=== PATIENT | female | born 1945 | race Caucasian/White ===

== ENCOUNTER → 2019-05-24 | Outpatient (CLI) | payer MEDICARE, BC ==
[~2019-05-24] MED LIST: ASPI-496 PO; CALC-534 PO; CRAN400T4 PO; DOCU-131 PO; FEXO180T72 PO; LEVO112T2 PO; MULT-717 PO; SERT50TA28 PO
== END | disposition home or self-care (01) ==
LOC: STAR 10:46 → EDBD 11:30
PROVIDERS: ATTEND Obstetrics & Gynecology Female Pelvic Medicine and Reconstructive Surgery
DX: Z01.818 Encounter for other preprocedural examination (principal); N81.2 Incomplete uterovaginal prolapse; N39.3 Stress incontinence (female) (male)
CPT/HCPCS: 93005

== ENCOUNTER 2020-02-23 10:28 | Outpatient (CLI) | payer MEDICARE, BC ==
[2020-02-23] MEDS ORDERED: CHOL10003 PO (11:18)
[2020-02-23] MEDS ORDERED: HAIR SKIN NAILS PO (11:18)
[2020-02-23] MEDS ORDERED: METAMUCIL PO (11:18)
== END 2020-02-23 23:59 | disposition home or self-care (01) ==
LOC: STAR 10:28
PROVIDERS: ATTEND Obstetrics & Gynecology Female Pelvic Medicine and Reconstructive Surgery
DX: Z01.818 Encounter for other preprocedural examination (principal); Z11.59 Encounter for screening for other viral diseases; N39.3 Stress incontinence (female) (male); N81.10 Cystocele, unspecified; R10.2 Pelvic and perineal pain; N81.6 Rectocele
CPT/HCPCS: 36415; 87635; 93005

== ENCOUNTER 2020-02-27 07:20 | Day surgery (SDC) | payer MEDICARE, BC ==
[~2020-02-27] VITALS: Ht 167.6 cm; Wt 71.7 kg
[~2020-02-27 07:20] MED LIST changes: +CHOL10003 PO; +HAIR SKIN NAILS PO; +METAMUCIL PO
[2020-02-27] MEDS ORDERED: LACTATED RINGERS 1,000 ML IV SCH (07:45)
[2020-02-27 07:51] VITALS: BP 126/78
[2020-02-27] MEDS ORDERED: CHLORHEXIDINE 15 ML UDC MM ONE (08:00)
[2020-02-27] MEDS ORDERED: DIPHENHYDRAMINE 50 MG/ML, 1ML IVPush PRN (08:30)
[2020-02-27] MEDS ORDERED: METOCLOPRAMIDE 5 MG/ML, 2ML IVPush PRN (08:30)
[2020-02-27] MEDS ORDERED: ONDANSETRON 2MG/ML, 2ML IVPush PRN (08:30)
[2020-02-27] MEDS ORDERED: LABETALOL 5MG/ML, 20ML IV PRN (08:30)
[2020-02-27] MEDS ORDERED: LORazepam 2 MG/ML, 1ML IVPush PRN (08:30)
[2020-02-27] MEDS ORDERED: MEPERIDINE/PF 25MG/0.5ML IVPush PRN (08:30)
[2020-02-27] MEDS ORDERED: EPHEDRINE 50 MG/ML, 1ML IVPush PRN (08:30)
[2020-02-27] MEDS ORDERED: ALBUTEROL/IPRATROPIUM 2.5MG/0.5MG, 3 ML NPPB PRN (08:30)
[2020-02-27] MEDS ORDERED: METHOCARBAMOL 1,000 MG in DEXTROSE 5% 100 ML IV PRN (08:30)
[2020-02-27] MEDS ORDERED: HYDROcodone/APAP 7.5-325MG/15ML UDC PO PRN (08:30)
[2020-02-27] MEDS ORDERED: HALOPERIDOL 5 MG/ML IV PRN (08:30)
[2020-02-27] MEDS ORDERED: ACETAMINOPHEN 325 MG TABLET PO PRN (08:30)
[2020-02-27] MEDS ORDERED: DIAZEPAM 5 MG/ML, 2ML IVPush PRN (08:30)
[2020-02-27] MEDS ORDERED: EPHEDRINE 50 MG/ML, 1ML IM PRN (08:30)
[2020-02-27] MEDS ORDERED: MIDAZOLAM 1 MG/ML, 2ML IV PRN (08:30)
[2020-02-27] MEDS ORDERED: BUPIVACAINE/PF 0.25% ONE (09:09)
[2020-02-27] MEDS ORDERED: FLUORESCEIN SODIUM 500 MG/5 ML ONE (09:09)
[2020-02-27] MEDS ORDERED: GENTAMICIN 80 MG/2 ML ONE (09:09)
[2020-02-27] MEDS ORDERED: VANCOMYCIN 500 MG ONE (09:09)
[2020-02-27] MEDS ORDERED: EPINEPHRINE 1 MG/ML, 1ML ONE (09:09)
[2020-02-27] MEDS ORDERED: GLYCOPYRROLATE 0.2MG/1ML, 5ML ONE (09:22)
[2020-02-27] MEDS ORDERED: PROPOFOL 10 MG/ML, 20ML ONE (09:22)
[2020-02-27] MEDS ORDERED: DEXAMETHASONE 4 MG/ML, 1ML ONE (09:22)
[2020-02-27] MEDS ORDERED: ROCURONIUM 10MG/ML,5ML ONE (09:22)
[2020-02-27] MEDS ORDERED: LIDOCAINE-MPF 2% ,5ML ONE (09:22)
[2020-02-27] MEDS ORDERED: FENTANYL PF 100 MCG/2ML ONE ×2 (09:23→12:00)
[2020-02-27] MEDS ORDERED: MIDAZOLAM 1 MG/ML, 2ML ONE (09:23)
[2020-02-27] MEDS ORDERED: SCOPOLAMINE 1MG PATCH TD ONE (10:11)
[2020-02-27] MEDS ORDERED: CEFAZOLIN PMX 2GM/50ML IVPB ONE (10:19)
[2020-02-27] MEDS ORDERED: ONDANSETRON 2MG/ML, 2ML ONE (10:44)
[2020-02-27] MEDS ORDERED: OXYcodone 5 MG/5 ML ORAL.SOL UDC ONE ×2 (11:28→12:33)
[2020-02-27] MEDS ORDERED: HYDROmorphone 1 MG/ML, 1ML INJ ONE (11:28)
[2020-02-27] MEDS: HYDROmorphone 1 MG/ML, 1ML INJ IVPush PRN ×4 (11:32→12:05)
[2020-02-27] MEDS: OXYcodone 5 MG/5 ML ORAL.SOL UDC PO PRN ×2 (11:34→12:38)
[2020-02-27] MEDS ORDERED: ACETAMINOPHEN 650 MG/20.3 ML UDC ONE (11:35)
[2020-02-27] MEDS: FENTANYL PF 100 MCG/2ML IV PRN ×3 (12:04→12:23)
== END 2020-02-27 15:00 | disposition home or self-care (01) ==
LOC: OUT 07:20
PROVIDERS: ATTEND Obstetrics & Gynecology Female Pelvic Medicine and Reconstructive Surgery
DX: N81.89 Other female genital prolapse (principal); N39.46 Mixed incontinence; N81.11 Cystocele, midline; N81.6 Rectocele; N81.5 Vaginal enterocele; R10.2 Pelvic and perineal pain; E03.9 Hypothyroidism, unspecified; F32.9 Major depressive disorder, single episode, unspecified; M19.90 Unspecified osteoarthritis, unspecified site; Z79.82 Long term (current) use of aspirin; Z79.890 Hormone replacement therapy; Z79.899 Other long term (current) drug therapy; Z88.2 Allergy status to sulfonamides; Z98.890 Other specified postprocedural states
CPT/HCPCS: 57265; 57282; 57288; C1771; J0171; J0690; J1100; J1170; J1580; J2250; J2405; J2704; J2800; J3010; J3370; J3490; J7120